=== PATIENT | female | born 1950 | race Two or more races ===

== ENCOUNTER 2020-03-27 16:15 | Emergency (ER) | payer MEDICAID ==
[~2020-03-27] VITALS: Ht 157.5 cm; Wt 73.9 kg
--- NOTE | 2020-03-27 16:50 | NUR ---
AAOX3, came to ER c/o diffuse abdominal pain, nausea, vomiting and diarrhea since this AM. Skin is warm and dry. Afebrile. Placed on the monitor. Awaiting MD for eval.
[2020-03-27] MEDS ORDERED: OMEP20CA15 PO (17:05)
[2020-03-27] MEDS ORDERED: LISI1TAB55 PO (17:05)
[2020-03-27] MEDS ORDERED: ATOR20TA PO (17:05)
--- NOTE | 2020-03-27 17:10 | NUR ---
IV LINE ESTABLISHED BLOOD DRAWN AND SENT TO LAB.
[2020-03-27 17:28] LABS: BASOPHILS # (AUTO) 0.1 /CMM (0.0-0.2); BASOPHILS % (AUTO) 0.5 % (0.0-2.0); EOSINOPHILS % (AUTO) 1.2 % (0.0-6.0); HEMATOCRIT 40 % (33-45); HEMOGLOBIN 13.5 g/dL (11.5-14.8); LYMPHOCYTES # (AUTO) 1.7 /CMM (0.8-4.8); LYMPHOCYTES % (AUTO) 14.6 % (20.0-44.0); MEAN CORPUSCULAR HGB CONC 34 g/dl (31.0-36.0); MEAN CORPUSCULAR VOLUME 91 fL (82-100); MONOCYTES # (AUTO) 0.9 /CMM (0.1-1.30); NEUTROPHILS # (AUTO) 8.7 /CMM (1.8-8.9); NEUTROPHILS % (AUTO) 75.7 % (43.0-81.0); PLATELET COUNT (AUTO) 313 /CMM (150-450); RED BLOOD CELL COUNT(AUTO) 4.45 MIL/uL (4.0-5.2); WHITE BLOOD COUNT (AUTO) 11.5 K/uL (4.3-11.0)
[2020-03-27] MEDS ORDERED: ONDANSETRON HCL/PF 4 MG/2 ML VIAL ONE (17:29)
[2020-03-27] MEDS ORDERED: PANTOPRAZOLE 40 MG VIAL ONE (17:29)
[2020-03-27] MEDS ORDERED: IV NS 0.9% 1,000 ML BAG IV ONE (17:30)
[2020-03-27] MEDS ORDERED: PANTOPRAZOLE 40 MG VIAL IV ONE (17:30)
[2020-03-27] MEDS ORDERED: FAMOTIDINE/PF INJ 20 MG/2 ML VIAL IV ONE ×2 (17:30)
[2020-03-27] MEDS ORDERED: ONDANSETRON HCL/PF 4 MG/2 ML VIAL IVP ONE (17:30)
--- NOTE | 2020-03-27 17:30 | NUR ---
URINE SPECIMEN COLLECTED AND SENT TO LAB.
[2020-03-27 17:31] LABS: CALCIUM, SERUM 9.4 mg/dL (8.5-10.1); CREATININE 0.7 mg/dL (0.6-1.3); POTASSIUM 3.7 mmol/L (3.5-5.1)
--- NOTE | 2020-03-27 17:34 | NUR ---
TECH AT BEDSIDE FOR US.
--- NOTE | 2020-03-27 17:42 | NUR ---
PT IS WHEELED TO CT SCAN VIA [facility].
[2020-03-27 17:46] LABS: ALBUMIN 4.3 g/dL (3.4-5.0); BILIRUBIN,DIRECT 0.1 mg/dL (0.0-0.2); BILIRUBIN,TOTAL 0.6 mg/dL (0.2-1.0); TOTAL PROTEIN, SERUM 8.5 g/dL (6.4-8.2)
[2020-03-27 18:02] LABS: BILIRUBIN,URINE Negative (NEGATIVE); BLOOD, URINE Trace-lysed Ery/uL (NEGATIVE); COLOR,URINE Yellow (YELLOW); KETONES,URINE Negative (NEGATIVE); LEUKOCYTE ESTERASE ,URINE Small (NEGATIVE); NITRITE, URINE Negative (NEGATIVE); PH,URINE 5.5 (5.0-8.0); PROTEIN,URINE Negative (NEGATIVE); UGLUCOSE Negative (NEGATIVE); UROBILINOGEN,URINE 0.2 EU/dL (0.2)
[2020-03-27 18:03] LABS: APPEARANCE,URINE SLIGHTLY CLOUDY (CLEAR)
[2020-03-27 18:26] LABS: BACTERIA,URINE Few /HPF (None Seen); MUCUS,URINE Few /LPF (None Seen); SQUAMOUS EPITHELIAL CELL,UR Few /HPF (None Seen)
--- NOTE | 2020-03-27 19:04 | NUR ---
IV removed. Catheter intact and site benign. Pressure and 4x4 applied to site. No bleeding noted. Patient discharged to home in stable condition. Written and verbal after care instructions given. Patient verbalizes understanding of instruction.
[2020-03-27 19:05] VITALS: BP 134/89
== END 2020-03-27 19:06 | disposition home or self-care (01) ==
LOC: ER 16:15
DX: N39.0 Urinary tract infection, site not specified (principal); R10.84 Generalized abdominal pain; R11.10 Vomiting, unspecified; R19.7 Diarrhea, unspecified; I10 Essential (primary) hypertension; K21.9 Gastro-esophageal reflux disease without esophagitis; E78.00 Pure hypercholesterolemia, unspecified; Z98.890 Other specified postprocedural states; Z79.899 Other long term (current) drug therapy
CPT/HCPCS: 36415; 74176; 76705; 80048; 80076; 81001; 83690; 85025; 85730; 96361; 96374; 96375; 99285; C9113; J2405; J3490; J7030; 81000-TC; 87086-TC; 87186-TC

== ENCOUNTER 2020-04-23 13:06 | Emergency (ER) | payer MEDICAID ==
[~2020-04-23] VITALS: Ht 157.5 cm; Wt 72.6 kg
[~2020-04-23 13:06] MED LIST: ATOR20TA PO; LISI1TAB55 PO; OMEP20CA15 PO
--- NOTE | 2020-04-23 13:30 | NUR ---
BIBS FROM HOME TO ER BED 5. AAOX4. NOT IN RESP DISTRESS, BREATHING EVEN AND UNLABORED. AMBULATORY. CAME IN FOR BACK PAIN, HEADACHE, SORETHROAT AND COUGH FOR THE PAST 5 DAYS. MD AT BEDSIDE FOR EVAL. ORDERD RECEIVED, NO9TED AND CARRIED OUT. URINE COLLECTED AND SENT TO LAB
[2020-04-23 14:02] LABS: BASOPHILS % (AUTO) 0.6 % (0.0-2.0); EOSINOPHILS % (AUTO) 0.8 % (0.0-6.0); HEMATOCRIT 37 % (33-45); HEMOGLOBIN 12.4 g/dL (11.5-14.8); LYMPHOCYTES # (AUTO) 2.3 /CMM (0.8-4.8); LYMPHOCYTES % (AUTO) 36.2 % (20.0-44.0); MEAN CORPUSCULAR HGB CONC 34 g/dl (31.0-36.0); MEAN CORPUSCULAR VOLUME 90 fL (82-100); MONOCYTES # (AUTO) 0.8 /CMM (0.1-1.30); MONOCYTES % (AUTO) 11.9 % (2.0-12.0); NEUTROPHILS # (AUTO) 3.2 /CMM (1.8-8.9); NEUTROPHILS % (AUTO) 50.5 % (43.0-81.0); PLATELET COUNT (AUTO) 263 /CMM (150-450); RED BLOOD CELL COUNT(AUTO) 4.11 MIL/uL (4.0-5.2); WHITE BLOOD COUNT (AUTO) 6.4 K/uL (4.3-11.0)
[2020-04-23 14:17] LABS: APPEARANCE,URINE CLEAR (CLEAR); BILIRUBIN,URINE NEGATIVE (NEGATIVE); BLOOD, URINE NEGATIVE Ery/uL (NEGATIVE); COLOR,URINE YELLOW (YELLOW); KETONES,URINE TRACE (NEGATIVE); LEUKOCYTE ESTERASE ,URINE TRACE (NEGATIVE); NITRITE, URINE NEGATIVE (NEGATIVE); PROTEIN,URINE 30 mg/dl (NEGATIVE); UGLUCOSE NEGATIVE (NEGATIVE); UROBILINOGEN,URINE 0.2 EU/dL (0.2)
[2020-04-23 14:22] LABS: CALCIUM, SERUM 8.6 mg/dL (8.5-10.1); POTASSIUM 3.5 mmol/L (3.5-5.1)
[2020-04-23 14:25] LABS: ALBUMIN 3.5 g/dL (3.4-5.0); BILIRUBIN,DIRECT 0.1 mg/dL (0.0-0.2); BILIRUBIN,TOTAL 0.2 mg/dL (0.2-1.0); TOTAL PROTEIN, SERUM 7.3 g/dL (6.4-8.2)
--- NOTE | 2020-04-23 14:36 | NUR ---
Patient discharged to home in stable condition. Written and verbal after care instructions given. Patient verbalizes understanding of instruction.
[2020-04-23 14:37] VITALS: BP 131/91
[2020-04-23 14:40] LABS: BACTERIA,URINE 1+ /HPF (None Seen); MUCUS,URINE Few /LPF (None Seen); RBC,URINE 0-2 /HPF (0-2)
== END 2020-04-23 14:37 | disposition home or self-care (01) ==
LOC: ER 13:08
DX: R10.9 Unspecified abdominal pain (principal); I10 Essential (primary) hypertension; K21.9 Gastro-esophageal reflux disease without esophagitis; E78.00 Pure hypercholesterolemia, unspecified; Z90.710 Acquired absence of both cervix and uterus; Z79.899 Other long term (current) drug therapy
CPT/HCPCS: 36415; 80048-TC; 80076-TC; 81000-TC; 83690-TC; 85025-TC

== ENCOUNTER 2021-03-17 18:44 | Emergency (ER) | payer MEDICAID ==
[~2021-03-17] VITALS: Ht 162.6 cm; Wt 70.8 kg
--- NOTE | 2021-03-17 18:50 | NUR ---
TO ER BED 7, C/O CHEST PAIN, ATTACHED TO MONITOR, CHANGED TO GOWN, SALINE LOCK ESTABLISHED, BLOOD DRAWN. AT BEDSIDE
[2021-03-17] MEDS ORDERED: CYCLOBENZAPRINE 10 MG TABLET PO ONE (19:00)
[2021-03-17] MEDS ORDERED: ACETAMINOPHEN ES 500 MG TABLET PO ONE (19:00)
[2021-03-17] MEDS ORDERED: CYCLOBENZAPRINE 10 MG TABLET ONE (19:05)
[2021-03-17] MEDS ORDERED: ACETAMINOPHEN ES 500 MG TABLET ONE (19:05)
[2021-03-17 19:38] LABS: BASOPHILS # (AUTO) 0.1 K/uL (0.0-0.2); BASOPHILS % (AUTO) 0.5 % (0.0-2.0); EOSINOPHILS % (AUTO) 0.4 % (0.0-6.0); HEMATOCRIT 37 % (33-45); HEMOGLOBIN 12.5 g/dL (11.5-14.8); LYMPHOCYTES # (AUTO) 2.6 K/uL (0.8-4.8); LYMPHOCYTES % (AUTO) 20.5 % (20.0-44.0); MEAN CORPUSCULAR HGB CONC 34 g/dl (31.0-36.0); MEAN CORPUSCULAR VOLUME 90 fL (82-100); MONOCYTES # (AUTO) 0.8 K/uL (0.1-1.30); MONOCYTES % (AUTO) 6.4 % (2.0-12.0); NEUTROPHILS % (AUTO) 72.2 % (43.0-81.0); PLATELET COUNT (AUTO) 299 K/uL (150-450); RED BLOOD CELL COUNT(AUTO) 4.09 MIL/uL (4.0-5.2); WHITE BLOOD COUNT (AUTO) 12.4 K/uL (4.3-11.0)
[2021-03-17 20:07] LABS: CALCIUM, SERUM 8.8 mg/dL (8.5-10.1); POTASSIUM 3.8 mmol/L (3.5-5.1)
[2021-03-17] MEDS ORDERED: CYCL5TAB PO (20:26)
[2021-03-17 21:15] VITALS: BP 135/76
--- NOTE | 2021-03-17 21:15 | NUR ---
Patient discharged to home in stable condition. Written and verbal after care instructions given. Patient verbalizes understanding of instruction and RX. Pt ambulated out of ED. VSS.
--- NOTE | 2021-03-17 21:15 | NUR ---
IV removed. Catheter intact and site benign. Pressure and 4x4 applied to site. No bleeding noted.
== END 2021-03-17 21:15 | disposition home or self-care (01) ==
LOC: ER 18:46
DX: S29.011A Strain of muscle and tendon of front wall of thorax, initial encounter (principal); R07.89 Other chest pain; I10 Essential (primary) hypertension; K21.9 Gastro-esophageal reflux disease without esophagitis; E78.00 Pure hypercholesterolemia, unspecified; Z98.890 Other specified postprocedural states; Z79.899 Other long term (current) drug therapy; X50.0XXA Overexertion from strenuous movement or load, initial encounter; Y93.89 Activity, other specified; Y92.89 Other specified places as the place of occurrence of the external cause; Y99.8 Other external cause status
CPT/HCPCS: 36415; 71045-TC; 80048-TC; 84484-TC; 85025-TC

== ENCOUNTER 2021-04-24 10:49 | Emergency (ER) | payer MEDICAID ==
[~2021-04-24] VITALS: Ht 160 cm; Wt 73.9 kg
[~2021-04-24 10:49] MED LIST changes: +CYCL5TAB PO
--- NOTE | 2021-04-24 11:10 | NUR ---
The patient bibs for c/o cough and sorethroat x 3 days. The patient rates sorethroat 02/16. Denies SOB. Respiration regular and unlabored. Denies chill or fevers. Will continue to monitor the patient.
[2021-04-24] MEDS ORDERED: BENZ-13 PO (12:58)
[2021-04-24] MEDS ORDERED: GUAI1TBM19 PO (12:58)
[2021-04-24] MEDS: DEXAMETHASONE SOLN 5 MG/5 ML UDC PO ONE (13:20)
[2021-04-24] MEDS: KETOROLAC TROMETHAMINE INJ 30 MG/ML VIAL IM ONE (13:20)
[2021-04-24] MEDS ORDERED: KETOROLAC TROMETHAMINE INJ 30 MG/ML VIAL ONE (13:31)
[2021-04-24] MEDS ORDERED: DEXAMETHASONE 4 MG TABLET ONE (13:31)
[2021-04-24 13:45] VITALS: BP 124/68
--- NOTE | 2021-04-24 13:45 | NUR ---
Patient discharged to home in stable condition. Written and verbal after care instructions given. Patient verbalizes understanding of instruction.
== END 2021-04-24 13:45 | disposition home or self-care (01) ==
LOC: ER 10:52
DX: J02.9 Acute pharyngitis, unspecified (principal); R05 Cough; I10 Essential (primary) hypertension; K21.9 Gastro-esophageal reflux disease without esophagitis; E78.00 Pure hypercholesterolemia, unspecified; Z98.890 Other specified postprocedural states; Z79.899 Other long term (current) drug therapy
CPT/HCPCS: 71045; 96372; 99283; J1885; J8540

== ENCOUNTER 2022-05-26 12:42 | Emergency (ER) | payer MEDICAID, OTHER ==
[~2022-05-26] VITALS: Ht 167.6 cm; Wt 81.6 kg
[~2022-05-26 12:42] MED LIST changes: +BENZ-13 PO; +GUAI1TBM19 PO
--- NOTE | 2022-05-26 12:57 | NUR ---
BIBS W/ FAMILY W/ C/O WORSENING COUGH AND CONGESTION; DX WITH BRONCHITIS 4 DAYS AGO. TO ER BED 8.
--- NOTE | 2022-05-26 13:15 | NUR ---
PT ATTACHED TO MONITOR. VS TAKEN
--- NOTE | 2022-05-26 13:35 | NUR ---
DR SOLO AT BEDSIDE FOR EVAL
[2022-05-26] MEDS ORDERED: ALBUTEROL FS 2.5 MG/3 ML VIAL.NEB NEB ONE (14:00)
[2022-05-26] MEDS ORDERED: IPRATROPIUM NEB FS 0.5 MG/2.5 ML AMPUL.NEB NEB ONE (14:00)
--- NOTE | 2022-05-26 14:00 | NUR ---
CALLED RT FOR BREATHING TX
--- NOTE | 2022-05-26 14:06 | NUR ---
PT AMBULATORY W/ STEADY GAIT, ABLE TO GO TO THE BATHROOM
[2022-05-26] MEDS ORDERED: ALBUTEROL FS 2.5 MG/3 ML VIAL.NEB ONE (14:07)
[2022-05-26] MEDS ORDERED: IPRATROPIUM NEB FS 0.5 MG/2.5 ML AMPUL.NEB ONE (14:07)
--- NOTE | 2022-05-26 14:08 | NUR ---
RT AT BEDSIDE
--- NOTE | 2022-05-26 14:16 | NUR ---
TECH AT BEDSIDE FOR EKG
[2022-05-26] MEDS ORDERED: BENZ-13 PO (15:09)
--- NOTE | 2022-05-26 15:16 | NUR ---
Patient discharged to home in stable condition. Written and verbal after care instructions given. Patient verbalizes understanding of instruction.
[2022-05-26 15:17] VITALS: BP 137/77
== END 2022-05-26 15:17 | disposition home or self-care (01) ==
LOC: ER 12:46
DX: J40 Bronchitis, not specified as acute or chronic (principal); I10 Essential (primary) hypertension; E78.5 Hyperlipidemia, unspecified; K21.9 Gastro-esophageal reflux disease without esophagitis; Z90.710 Acquired absence of both cervix and uterus; Z79.899 Other long term (current) drug therapy
CPT/HCPCS: 94799-TC

== ENCOUNTER 2022-11-25 00:25 | Emergency (ER) | payer OTHER ==
[~2022-11-25] VITALS: Ht 157.5 cm; Wt 77.1 kg
--- NOTE | 2022-11-25 00:59 | NUR ---
BIBSELF FROM HOME FOR HTN +H/A, +NAUSEA & HEARTBURN. PT AAOX4. PLACED COMFORTABLY IN BED, VITALS CHECKED.
--- NOTE | 2022-11-25 02:00 | NUR ---
Patient discharged to home in stable condition. Written and verbal after care instructions given. Patient verbalizes understanding of instruction.
[2022-11-25 02:28] VITALS: BP 139/78
== END 2022-11-25 02:00 | disposition home or self-care (01) ==
LOC: ER 00:30
DX: I10 Essential (primary) hypertension (principal); R51.9 Headache, unspecified; R11.0 Nausea; E78.5 Hyperlipidemia, unspecified; K21.9 Gastro-esophageal reflux disease without esophagitis; Z90.49 Acquired absence of other specified parts of digestive tract; Z79.899 Other long term (current) drug therapy

== ENCOUNTER 2022-12-28 12:01 | Inpatient (IN) | payer OTHER ==
[~2022-12-28] VITALS: Ht 154.9 cm; Wt 69.9 kg
--- NOTE | 2022-12-28 12:49 | NUR ---
PT IN BED 2 A/O X4 BREATHING IS EVEN AND UNLABORED NO SOB NOTED. C/O STRONG COUGH THAT CAUSES PAIN X1 WEEK. RECENTLY WENT TO [facility] GOT Rx OF AMOXICILIN AND TYLONOL. IS EXPERINCING DIARHEA. IN BED ACCOMAPPNIED BY FAMILY BED LOCKED IN LOWEST POSTION.
[2022-12-28] MEDS ORDERED: ONDANSETRON HCL/PF 4 MG/2 ML VIAL ONE (13:11)
[2022-12-28] MEDS ORDERED: IV NS 0.9% 1,000 ML BAG IV ONE (13:30)
[2022-12-28] MEDS ORDERED: ONDANSETRON HCL/PF 4 MG/2 ML VIAL IVP ONE (13:30)
--- NOTE | 2022-12-28 13:36 | NUR ---
labs drawn and sent to lab.
[2022-12-28 13:51] LABS: HEMATOCRIT 40 % (33-45); HEMOGLOBIN 13.2 g/dL (11.5-14.8)
[2022-12-28 13:52] LABS: BASOPHILS # (AUTO) 0.1 K/uL (0.0-0.2); BASOPHILS % (AUTO) 0.8 % (0.0-2.0); EOSINOPHILS % (AUTO) 0.3 % (0.0-6.0); LYMPHOCYTES # (AUTO) 1.5 K/uL (0.8-4.8); LYMPHOCYTES % (AUTO) 18.3 % (20.0-44.0); MEAN CORPUSCULAR HGB CONC 33 g/dl (31.0-36.0); MEAN CORPUSCULAR VOLUME 92 fL (82-100); MONOCYTES # (AUTO) 1.1 K/uL (0.1-1.30); MONOCYTES % (AUTO) 14.2 % (2.0-12.0); NEUTROPHILS # (AUTO) 5.3 K/uL (1.8-8.9); NEUTROPHILS % (AUTO) 66.4 % (43.0-81.0); PLATELET COUNT (AUTO) 273 K/uL (150-450)
--- NOTE | 2022-12-28 13:55 | NUR ---
chest x ray taken.
[2022-12-28 14:11] LABS: ALANINE AMINOTRANSFERASE 36 U/L (12-78); ALKALINE PHOSPHATASE 88 U/L (46-116); ASPARTATE AMINOTRANSFERASE 43 U/L (15-37); BILIRUBIN,TOTAL 0.4 mg/dL (0.2-1.0); CALCIUM, SERUM 9.8 mg/dL (8.5-10.1); CARBON DIOXIDE 28 mmol/L (21-32); CHLORIDE 101 mmol/L (98-107); CREATININE 0.9 mg/dL (0.6-1.3); GLUCOSE 110 mg/dL (74-106); LIPASE 96 U/L (73-393); POTASSIUM 4.5 mmol/L (3.5-5.1); SODIUM SERUM 139 mmol/L (136-145); TOTAL PROTEIN, SERUM 8.4 g/dL (6.4-8.2); UREA NITROGEN, BLOOD 19 mg/dL (7-18)
[2022-12-28] MEDS ORDERED: ASPIRIN 81 MG TAB.CHEW ONE (15:00)
[2022-12-28] MEDS ORDERED: ASPIRIN 81 MG TAB.CHEW PO ONE (15:00)
--- NOTE | 2022-12-28 15:07 | NUR ---
MOVE SHEET SUBMITTED.
[2022-12-28] MEDS ORDERED: AMOX1TAB15 PO (15:21)
[2022-12-28] MEDS ORDERED: LISI40TA13 PO (15:21)
[2022-12-28] MEDS ORDERED: HYDR25TA4 PO (15:21)
[2022-12-28] MEDS ORDERED: ACET-73 PO (15:21)
--- NOTE | 2022-12-28 15:56 | NUR ---
Alexi hoang in [facility] - 12/28/22 at 1556 by REJI troponin 104
[2022-12-28] MEDS ORDERED: BENZONATATE 100 MG CAPSULE PO ONE ×2 (16:19→16:30)
[2022-12-28 18:06] LABS: BILIRUBIN,URINE NEGATIVE (NEGATIVE); COLOR,URINE YELLOW (YELLOW); LEUKOCYTE ESTERASE ,URINE 1+ (NEGATIVE); NITRITE, URINE NEGATIVE (NEGATIVE); PH,URINE 6.5 (5.0-8.0); PROTEIN,URINE NEGATIVE (NEGATIVE); UGLUCOSE NEGATIVE (NEGATIVE); UROBILINOGEN,URINE 0.2 EU/dL (0.2)
[2022-12-28 19:23] LABS: RBC,URINE NONE SEEN /HPF (0-2)
[2022-12-28 19:24] LABS: BACTERIA,URINE Few /HPF (None Seen); SQUAMOUS EPITHELIAL CELL,UR Few /HPF (None Seen)
--- NOTE | 2022-12-28 19:28 | NUR ---
paged [facility].
[2022-12-28] MEDS ORDERED: MORPHINE SULFATE INJ 2 MG/ML DISP.SYRIN IV PRN (20:00)
[2022-12-28] MEDS ORDERED: ONDANSETRON HCL/PF 4 MG/2 ML VIAL IVP PRN (20:00)
[2022-12-28] MEDS ORDERED: ACETAMINOPHEN 325 MG TABLET PO PRN (20:00)
--- NOTE | 2022-12-28 20:22 | NUR ---
report given to 3W charge nurse
--- NOTE | 2022-12-28 20:30 | NUR ---
PT TRANSFERRING TO 304-1 VIA ACLS PROTOCOL. VSS. ALL BELONGINGS WITH PT.
--- NOTE | 2022-12-28 20:35 | NUR ---
FEDERAL LAW CLERKSPACE SCIENCES DIRECTOR NOTE ADMITTED THIS PATIENT FROM ER VIA [facility] WITH ER STAFF. DX OF NSTEMI. PATIENT IS AWAKE, ALERT AND ORIENTED X 4. TELUGU SPEAKER. ON ROOM AIR; TOLERATING WELL. VITAL SIGNS FOLLOWS: Temp 98.3, AZ 85, RR 20, O2 SAT 96%, BP 144/58 MM HG. ABLE TO MAKE NEEDS KNOWN. NOT IN ANY FORM OF RESPIRATORY OR CARDIAC DISTRESS. DENIES ANY PAIN OR DISCOMFORT. ATTACHED TO EXTERNAL CARDIAC MONITORING SR HR-84 BPM. WITH IV ACCESS ON RIGHT WRIST 20g; PATENT, INTACT AND SALINE LOCKED. BODY AND SKIN ASSESSMENT DONE; SKIN IS INTACT. ORIENTED TO STAFF, ROOM AND UNIT. INVENTORY OF PERSONAL BELONGINGS DONE. FALL AND SAFETY PRECAUTIONS INITIATED: CALL LIGHT AND TABLE WITHIN REACH, SIDE RAILS UP X 2, BED IN LOWEST LOCKED POSITION. WILL CONTINUE TO MONITOR THROUGHOUT SHIFT.
[2022-12-28 21:00] VITALS: BP 120/78
[2022-12-28] MEDS: ENOXAPARIN SODIUM 40 MG/0.4 ML DISP.SYRIN SQ SCH (22:38)
[2022-12-28] MEDS: ATORVASTATIN 40 MG TABLET PO SCH (22:39)
[2022-12-29 05:17] VITALS: BP_SYST 155
[2022-12-29 05:18] VITALS: BP 125/55
[2022-12-29 05:55] LABS: BASOPHILS % (AUTO) 1.1 % (0.0-2.0); EOSINOPHILS % (AUTO) 0.5 % (0.0-6.0); HEMATOCRIT 37 % (33-45); HEMOGLOBIN 12.3 g/dL (11.5-14.8); LYMPHOCYTES # (AUTO) 1.8 K/uL (0.8-4.8); LYMPHOCYTES % (AUTO) 38.9 % (20.0-44.0); MEAN CORPUSCULAR HGB CONC 34 g/dl (31.0-36.0); MEAN CORPUSCULAR VOLUME 91 fL (82-100); MONOCYTES # (AUTO) 0.9 K/uL (0.1-1.30); MONOCYTES % (AUTO) 19.2 % (2.0-12.0); NEUTROPHILS # (AUTO) 1.8 K/uL (1.8-8.9); NEUTROPHILS % (AUTO) 40.3 % (43.0-81.0); PLATELET COUNT (AUTO) 250 K/uL (150-450); RED BLOOD CELL COUNT(AUTO) 4.03 MIL/uL (4.0-5.2); WHITE BLOOD COUNT (AUTO) 4.6 K/uL (4.3-11.0)
[2022-12-29 06:22] LABS: ALANINE AMINOTRANSFERASE 31 U/L (12-78); ALBUMIN 3.3 g/dL (3.4-5.0); ALKALINE PHOSPHATASE 71 U/L (46-116); ASPARTATE AMINOTRANSFERASE 33 U/L (15-37); BILIRUBIN,TOTAL 0.3 mg/dL (0.2-1.0); CALCIUM, SERUM 9.2 mg/dL (8.5-10.1); CARBON DIOXIDE 27 mmol/L (21-32); CHLORIDE 105 mmol/L (98-107); CREATININE 0.9 mg/dL (0.6-1.3); GLUCOSE 109 mg/dL (74-106); MAGNESIUM 1.8 mg/dL (1.8-2.4); PHOSPHORUS 4.3 mg/dL (2.5-4.9); POTASSIUM 3.6 mmol/L (3.5-5.1); SODIUM SERUM 141 mmol/L (136-145); UREA NITROGEN, BLOOD 14 mg/dL (7-18)
--- NOTE | 2022-12-29 07:05 | NUR ---
SIGNALER CLOSING NOTE PATIENT IN BED; AWAKE, A/O X 4. STABLE ON ROOM AIR. IN NO ACUTE DISTRESS. NO C/O ANY PAIN OR DISCOMFORT. ON EXTERNAL CARDIAC MONITORING SR HR-84 BPM. WITH IV ACCESS ON RIGHT WRIST 20g; PATENT, INTACT AND SALINE LOCKED. ALL NEEDS ATTENDED. ALL DUE MEDS GIVEN ORDERED. FALL AND SAFETY PRECAUTIONS MAINTAINED: CALL LIGHT AND TABLE WITHIN REACH, SIDE RAILS UP X 2, BED IN LOWEST LOCKED POSITION. ENDORSED TO MORNING SHIFT FOR BROOKS.
[2022-12-29 07:06] LABS: BAND % (MANUAL) 2 % (0.0-5.0); LYMPHOCYTES % (MANUAL) 39 % (16-48); MONOCYTES % (MANUAL) 17 % (0-11.0); NEUTROPHILS % (MANUAL) 42 (42-76)
--- NOTE | 2022-12-29 07:15 | NUR ---
STAMP CLASSIFIER OPENING NOTES RECEIVED PATIENT AWAKE IN BED RESTING, APPEARS TO BE COMFORTABLE, A/OX4, DENIES PAIN AT THIS TIME, ON RA, BREATHING EVEN AND UNLABORED, NO DISTRESS OR SOB NOTED, IV ACCESS R WRIST 22#G, ON SALINE LOCK, INTACT, PATENT AND FLUSHING WELL, PATIENT WITH EXTERNAL WIRE TRANSFER CLERK WITH CURRENT READING OF SR AND CURRENT HR OF 76, NO CARDIAC DISTRESS NOTED, PATIENT IS CONTINENT, ON BRP, FALL AND SAFETY MEASURES IN PLACE, BED IN LOW AND LOCK POSITION, CALL LIGHT AND TRAY TABLE WITHIN EASY REACH, SIDE RAILS UP X2, WILL CONTINUE TO MONITOR PATIENT ACCORDINGLY.
[2022-12-29 08:00] VITALS: BP 136/60
[2022-12-29] MEDS: SULFAMETH/TRIMETH 800/160 MG 1 UDTAB TABLET PO SCH ×2 (08:17→21:35)
[2022-12-29] MEDS: LISINOPRIL (20MG) 20 MG TABLET PO SCH (08:20)
--- NOTE | 2022-12-29 10:54 | NUR ---
RN NOTE RECEIVED A CALL FROM LAB GIORGI OLIVEIRA AND REPORTED THAT PATIENTS HAS CRITICAL HIGH TROPONIN IS 134. DR. GARCIA IS IN UNIT AND NOTIFIED HIM OF THE RESULT.
[2022-12-29] MEDS: ASPIRIN 81 MG TAB.CHEW PO SCH (11:01)
[2022-12-29 12:00] VITALS: BP 148/60
[2022-12-29] MEDS ORDERED: MAGNESIUM HYDROXIDE 30 ML UDC PO PRN (14:30)
[2022-12-29] MEDS: GUAIFENESIN/CODEINE 10 ML UDC PO PRN (14:36)
--- NOTE | 2022-12-29 14:37 | NUR ---
RN NOTES PATIENT WAS NOTED WITH COUGH AND CONGESTION, NOTIFIED ANESTHESIOLOGIST/PHYSICIAN RUPALI CENTENO AND ORDERED TO GIVE ROBITUSSIN 10MG SYRUP Q 6 HRS PRN. MED GIVEN AT 1436.
[2022-12-29 16:00] VITALS: BP 98/44
--- NOTE | 2022-12-29 18:38 | NUR ---
ELECTRIC CONTAINER TESTER CLOSING NOTES PATIENT AWAKE IN BED RESTING, APPEARS TO BE COMFORTABLE, A/OX4, DENIES PAIN AT THIS TIME, ON RA, BREATHING EVEN AND UNLABORED, NO DISTRESS OR SOB NOTED, IV ACCESS R WRIST 22#G, ON SALINE LOCK, INTACT, PATENT AND FLUSHING WELL, PATIENT WITH EXTERNAL PRODUCTION LABORER WITH CURRENT READING OF SR AND CURRENT HR OF 74, NO CARDIAC DISTRESS NOTED, PATIENT IS CONTINENT, ON BRP, FALL AND SAFETY MEASURES IN PLACE, BED IN LOW AND LOCK POSITION, CALL LIGHT AND TRAY TABLE WITHIN EASY REACH, SIDE RAILS UP X2, WILL CONTINUE TO MONITOR PATIENT
--- NOTE | 2022-12-29 19:20 | NUR ---
TELERN OOB ON A CHAIR, RESTING QUIETLY. NO COMPLAINTS MADE. PAINFREE. SAFETY PRECAUTIONS EMPHASIZED. PLAN OF CARE AND MEDICATION REGIMEN DISCUSSED WITH PATIENT WITH SON TRANSLATING. PATIENT ARABIC SPEAKING ONLY. ABLE TO UNDERSTAND SIMPLE SOU[place]. ON RA.
[2022-12-29 20:00] VITALS: BP 124/57
[2022-12-29] MEDS: ATORVASTATIN 40 MG TABLET PO SCH (21:35)
[2022-12-29] MEDS: ENOXAPARIN SODIUM 40 MG/0.4 ML DISP.SYRIN SQ SCH (21:36)
--- NOTE | 2022-12-29 21:48 | NUR ---
TELERN DUE MEDS GIVEN, REMAINS SR ON THE MONITOR. PAINFREE.
[2022-12-30] VITALS: BP 123/54
[2022-12-30] MEDS: GUAIFENESIN/CODEINE 10 ML UDC PO PRN (03:13)
--- NOTE | 2022-12-30 03:15 | NUR ---
RN NOTE PT NOTED WITH PERSISTENT COUGH. ADMINISTERED ROBITUSSIN 10 ML FOR COUGH ORDERED. MADE COMFORTABLE IN BED. ALL NEEDS MET AT THIS TIME.
[2022-12-30 04:00] VITALS: BP 118/52
[2022-12-30 06:54] LABS: BASOPHILS % (AUTO) 0.7 % (0.0-2.0); EOSINOPHILS % (AUTO) 1.3 % (0.0-6.0); HEMATOCRIT 36 % (33-45); HEMOGLOBIN 12.2 g/dL (11.5-14.8); LYMPHOCYTES # (AUTO) 2.4 K/uL (0.8-4.8); LYMPHOCYTES % (AUTO) 49.2 % (20.0-44.0); MEAN CORPUSCULAR HGB CONC 34 g/dl (31.0-36.0); MEAN CORPUSCULAR VOLUME 89 fL (82-100); MONOCYTES # (AUTO) 0.7 K/uL (0.1-1.30); MONOCYTES % (AUTO) 14.9 % (2.0-12.0); NEUTROPHILS # (AUTO) 1.7 K/uL (1.8-8.9); NEUTROPHILS % (AUTO) 33.9 % (43.0-81.0); PLATELET COUNT (AUTO) 257 K/uL (150-450); RED BLOOD CELL COUNT(AUTO) 4.07 MIL/uL (4.0-5.2); WHITE BLOOD COUNT (AUTO) 4.9 K/uL (4.3-11.0)
--- NOTE | 2022-12-30 06:54 | NUR ---
TELERN REMAINS UNCHANGED SR ON THE MONITOR. CONTINUED MONITORING. LABS PENDING
[2022-12-30 07:10] LABS: ALBUMIN 3.3 g/dL (3.4-5.0); BILIRUBIN,TOTAL 0.3 mg/dL (0.2-1.0); CALCIUM, SERUM 9.1 mg/dL (8.5-10.1); PHOSPHORUS 4.4 mg/dL (2.5-4.9)
--- NOTE | 2022-12-30 07:15 | NUR ---
[employer] OPENING NOTES RECEIVED PATIENT AWAKE IN BED RESTING, APPEARS TO BE COMFORTABLE, A/OX4, DENIES PAIN AT THIS TIME, ON RA, BREATHING EVEN AND UNLABORED, NO DISTRESS OR SOB NOTED, HAS PERIODS OF COUGHING, PATIENT REPORTED COUGH IS GETTING BETTER, IV ACCESS R WRIST 22#G, ON SALINE LOCK, INTACT, PATENT AND FLUSHING WELL, PATIENT WITH EXTERNAL KITCHEN LEAD WITH CURRENT READING OF SR AND CURRENT HR OF 60, NO CARDIAC DISTRESS NOTED, PATIENT IS CONTINENT, ON BRP, FALL AND SAFETY MEASURES IN PLACE, BED IN LOW AND LOCK POSITION, CALL LIGHT AND TRAY TABLE WITHIN EASY REACH, SIDE RAILS UP X2, WILL CONTINUE TO MONITOR PATIENT
[2022-12-30 08:00] VITALS: BP 117/73
[2022-12-30] MEDS: SULFAMETH/TRIMETH 800/160 MG 1 UDTAB TABLET PO SCH (08:11)
[2022-12-30] MEDS: ASPIRIN 81 MG TAB.CHEW PO SCH (08:11)
[2022-12-30] MEDS: LISINOPRIL (20MG) 20 MG TABLET PO SCH (08:12)
--- NOTE | 2022-12-30 10:02 | NUR ---
RN NOTES DR GARCIA ORDERED [facility] FOR PT. OBTAINED CONSENT FROM PT WITH THE HELP OF PT'S SON SHARONA BEAM SAW OPERATOR PT SPEAKS TURKMEN ONLY. NEW IV ACCESS INSERTED TO LAC G#20.
[2022-12-30] MEDS ORDERED: GUAI10SY3 PO (10:08)
[2022-12-30] MEDS: METOPROLOL TARTRATE INJ 5 MG/5 ML AMPUL IVP PRN ×2 (10:40→10:45)
[2022-12-30] MEDS ORDERED: IV NS 0.9% 250 ML IV ONE (10:41)
[2022-12-30] MEDS ORDERED: NITROGLYCERIN 0.4 MG/TAB BOTTLE ONE (10:41)
[2022-12-30] MEDS ORDERED: IOHEXOL-350 100 ML VIAL IV ONE (10:41)
[2022-12-30] MEDS ORDERED: CT SWABBABLE VALVE TRANS SET 1 EA INFUS.SET MC ONE (10:41)
[2022-12-30] MEDS ORDERED: METOPROLOL TARTRATE INJ 5 MG/5 ML AMPUL ONE (10:41)
[2022-12-30] MEDS ORDERED: NITROGLYCERIN 0.4 MG/TAB BOTTLE SL ONE (11:00)
[2022-12-30 12:00] VITALS: BP 97/40
[2022-12-30] MEDS ORDERED: SULF1TAB48 PO (15:13)
[2022-12-30 16:00] VITALS: BP 102/62
--- NOTE | 2022-12-30 16:16 | NUR ---
RN NOTE PATIENT C/O HAVING N/V AND ASK FOR A MEDICATION, ADMINISTERED ZOFRAN ORDERED.
--- NOTE | 2022-12-30 18:40 | NUR ---
RN DISCHARGED NOTES PATIENT DISCHARGED HOME IN STABLE MEDICAL CONDITION. PATIENT IS A/OX4, ABLE TO MAKE NEEDS KNOWN. V/S TAKEN, STABLE AND RECORDED. IV ACCESSES ON RIGHT WRIST G#22 AND LAC G#20 BOTH REMOVED, DRY PRESSURE DRESSING APPLIED AT SITES, NO ACTIVE BLEEDING NOTED. EXTERNAL WAREHOUSE DELIVERY MANAGER REMOVED AND RETURNED TO TRAVEL WRITER GEENA. ALL BELONGINGS CHECKED AND BELONGINGS LIST SIGNED BY PT. NO SKIN ISSUES NOTED. HEALTH TEACHINGS/DISCHARGE INSTRUCTIONS GIVEN TO PT AND SON MARLIN, BOTH VERBALIZED UNDERSTANDING. ALSO INSTRUCTED PATIENT AND SON TO CALL 911 OR GO TO THE NEAREST ER FOR ANY EMERGENCY. PATIENT LEFT UNIT VIA WHEELCHAIR ACCOMPANIED BY MAGAN Treviño CHARGE NURSE AND MD AWARE OF DISCHARGE.
== END 2022-12-30 18:15 | disposition home or self-care (01) | DRG 113 ==
LOC: ER 12:04 → TELE 20:13
PROVIDERS: ADMIT Nurse Practitioner Acute Care; ATTEND Nurse Practitioner Acute Care
DX: J06.9 Acute upper respiratory infection, unspecified (principal); I21.A1 Myocardial infarction type 2; E88.09 Other disorders of plasma-protein metabolism, not elsewhere classified; N39.0 Urinary tract infection, site not specified; E78.5 Hyperlipidemia, unspecified; I10 Essential (primary) hypertension; B96.89 Other specified bacterial agents as the cause of diseases classified elsewhere; R79.89 Other specified abnormal findings of blood chemistry; E78.00 Pure hypercholesterolemia, unspecified; E86.0 Dehydration; Z90.710 Acquired absence of both cervix and uterus; K57.10 Diverticulosis of small intestine without perforation or abscess without bleeding; K21.9 Gastro-esophageal reflux disease without esophagitis; Z79.899 Other long term (current) drug therapy; Z20.822 Contact with and (suspected) exposure to COVID-19
CPT/HCPCS: 36415; 71045-TC; 75574; 80048-TC; 80053-TC; 80061-TC; 80076-TC; 81001; 83690-TC; 83735-TC; 84100-TC; 84439-TC; 84484-TC; 85025-TC; 87081-TC; 87086-TC; 93307-TC; 97116-TC; 97530-TC; C9803; G0378; J1650; J2405; J3490; J7030; J7050; Q9967

== ENCOUNTER 2023-05-11 10:19 | Emergency (ER) | payer OTHER ==
[~2023-05-11] VITALS: Ht 154.9 cm; Wt 70.8 kg
[~2023-05-11 10:19] MED LIST changes: +ACET-73 PO; -BENZ-13 PO; -CYCL5TAB PO; +GUAI10SY3 PO; -GUAI1TBM19 PO; +HYDR25TA4 PO; -LISI1TAB55 PO; +LISI40TA13 PO; +SULF1TAB48 PO
[2023-05-11] MEDS ORDERED: ONDANSETRON HCL/PF 4 MG/2 ML VIAL ONE (10:55)
[2023-05-11] MEDS ORDERED: ONDANSETRON HCL/PF 4 MG/2 ML VIAL IVP ONE (11:00)
[2023-05-11] MEDS ORDERED: IV NS 0.9% 1,000 ML BAG IV ONE (11:00)
[2023-05-11 11:12] LABS: CALCIUM, SERUM 9.7 mg/dL (8.5-10.1); CARBON DIOXIDE 26 mmol/L (21-32); CHLORIDE 101 mmol/L (98-107); GLUCOSE 113 mg/dL (74-106); POTASSIUM 4.4 mmol/L (3.5-5.1); SODIUM SERUM 138 mmol/L (136-145); UREA NITROGEN, BLOOD 27 mg/dL (7-18)
[2023-05-11 11:18] LABS: BASOPHILS % (AUTO) 0.1 % (0.0-2.0); EOSINOPHILS % (AUTO) 0.1 % (0.0-6.0); HEMATOCRIT 39 % (33-45); HEMOGLOBIN 13.2 g/dL (11.5-14.8); LYMPHOCYTES # (AUTO) 0.9 K/uL (0.8-4.8); MEAN CORPUSCULAR HEMOGLOBIN 30 PG (26.0-33.0); MEAN CORPUSCULAR HGB CONC 34 g/dl (31.0-36.0); MEAN CORPUSCULAR VOLUME 89 fL (82-100); MONOCYTES # (AUTO) 1.3 K/uL (0.1-1.30); NEUTROPHILS # (AUTO) 15.6 K/uL (1.8-8.9); NEUTROPHILS % (AUTO) 87.8 % (43.0-81.0); PLATELET COUNT (AUTO) 331 K/uL (150-450); RED BLOOD CELL COUNT(AUTO) 4.39 MIL/uL (4.0-5.2); RED CELL DISTRIBUTION WIDTH 14.1 % (11.5-15.0); WHITE BLOOD COUNT (AUTO) 17.8 K/uL (4.3-11.0)
[2023-05-11 11:19] LABS: ALANINE AMINOTRANSFERASE 29 U/L (12-78); ALBUMIN 4.1 g/dL (3.4-5.0); ALKALINE PHOSPHATASE 90 U/L (46-116); ASPARTATE AMINOTRANSFERASE 23 U/L (15-37); BILIRUBIN,DIRECT 0.1 mg/dL (0.0-0.2); BILIRUBIN,TOTAL 0.8 mg/dL (0.2-1.0); LIPASE 108 U/L (73-393); TOTAL PROTEIN, SERUM 8.6 g/dL (6.4-8.2)
[2023-05-11] MEDS ORDERED: ONDA4TAB5 PO (12:27)
[2023-05-11] MEDS ORDERED: LOPE1LIQ56 PO (12:27)
[2023-05-11] MEDS ORDERED: CIPR-262 PO (12:27)
[2023-05-11 12:40] VITALS: BP 113/70; TEMP 98.4; O2SAT 97
== END 2023-05-11 12:40 | disposition home or self-care (01) ==
LOC: ER 10:24
DX: K52.9 Noninfective gastroenteritis and colitis, unspecified (principal); I10 Essential (primary) hypertension; E78.00 Pure hypercholesterolemia, unspecified; K21.9 Gastro-esophageal reflux disease without esophagitis; Z90.710 Acquired absence of both cervix and uterus
CPT/HCPCS: 99285; 96374; 76700; 96361; 85025; 80048; 83690; 80076; 36415; J2405; J7030

== ENCOUNTER 2023-06-20 11:48 | Emergency (ER) | payer OTHER ==
[~2023-06-20] VITALS: Ht 157.5 cm; Wt 70.3 kg
[~2023-06-20 11:48] MED LIST changes: +CIPR-262 PO; +LOPE1LIQ56 PO; +ONDA4TAB5 PO
[2023-06-20] MEDS ORDERED: ONDANSETRON HCL/PF 4 MG/2 ML VIAL IVP ONE (14:30)
[2023-06-20] MEDS ORDERED: MORPHINE SULFATE INJ 2 MG/ML DISP.SYRIN IV ONE (14:30)
[2023-06-20] MEDS ORDERED: IV NS 0.9% 1,000 ML BAG IV ONE (14:30)
[2023-06-20] MEDS ORDERED: hydrALAZINE HCL IV 20 MG VIAL IV ONE ×2 (15:00→16:30)
[2023-06-20 15:07] LABS: BASOPHILS # (AUTO) 0.1 K/uL (0.0-0.2); BASOPHILS % (AUTO) 0.6 % (0.0-2.0); EOSINOPHILS # (AUTO) 0.2 K/uL (0.0-0.7); EOSINOPHILS % (AUTO) 2.1 % (0.0-6.0); HEMATOCRIT 36 % (33-45); HEMOGLOBIN 12.1 g/dL (11.5-14.8); LYMPHOCYTES % (AUTO) 33.3 % (20.0-44.0); MEAN CORPUSCULAR HEMOGLOBIN 30 PG (26.0-33.0); MEAN CORPUSCULAR HGB CONC 34 g/dl (31.0-36.0); MEAN CORPUSCULAR VOLUME 88 fL (82-100); MONOCYTES # (AUTO) 0.7 K/uL (0.1-1.30); PLATELET COUNT (AUTO) 333 K/uL (150-450); RED BLOOD CELL COUNT(AUTO) 4.06 MIL/uL (4.0-5.2); RED CELL DISTRIBUTION WIDTH 14.2 % (11.5-15.0)
[2023-06-20 15:13] LABS: CARBON DIOXIDE 31 mmol/L (21-32); CHLORIDE 102 mmol/L (98-107); CREATININE 0.9 mg/dL (0.6-1.3); GLUCOSE 97 mg/dL (74-106); POTASSIUM 3.8 mmol/L (3.5-5.1); SODIUM SERUM 139 mmol/L (136-145); UREA NITROGEN, BLOOD 17 mg/dL (7-18)
[2023-06-20 15:20] LABS: ALANINE AMINOTRANSFERASE 31 U/L (12-78); ALKALINE PHOSPHATASE 92 U/L (46-116); ASPARTATE AMINOTRANSFERASE 23 U/L (15-37); BILIRUBIN,DIRECT 0.1 mg/dL (0.0-0.2); BILIRUBIN,TOTAL 0.4 mg/dL (0.2-1.0); LIPASE 28 U/L (16-77); TOTAL PROTEIN, SERUM 8.2 g/dL (6.4-8.2)
[2023-06-20] MEDS ORDERED: MORPHINE SULFATE INJ 4 MG/ML DISP.SYRIN ONE (15:25)
[2023-06-20] MEDS ORDERED: ONDANSETRON HCL/PF 4 MG/2 ML VIAL ONE (15:25)
[2023-06-20] MEDS ORDERED: hydrALAZINE HCL IV 20 MG VIAL ONE (15:25)
[2023-06-20] MEDS ORDERED: POLY119P3 PO (17:10)
[2023-06-20] MEDS ORDERED: IBUP-1953 PO (17:11)
[2023-06-20 17:20] VITALS: BP 116/42; TEMP 98.5; O2SAT 99
== END 2023-06-20 17:20 | disposition home or self-care (01) ==
LOC: ER 11:50
DX: K59.00 Constipation, unspecified (principal); R10.84 Generalized abdominal pain; R51.9 Headache, unspecified; I10 Essential (primary) hypertension; E78.5 Hyperlipidemia, unspecified; K21.9 Gastro-esophageal reflux disease without esophagitis; E78.00 Pure hypercholesterolemia, unspecified; Z79.899 Other long term (current) drug therapy; Z98.890 Other specified postprocedural states
CPT/HCPCS: 99285; 70450; 96374; 71045; 96375; 96361; 93005; 87804 ×2; 74176; 85025; 80048; 83690; 80076; 36415; 84484; J0360; J2270; J2405; J7030

== ENCOUNTER 2023-07-25 13:40 | Emergency (ER) | payer OTHER ==
[~2023-07-25] VITALS: Ht 157.5 cm; Wt 70.8 kg
[~2023-07-25 13:40] MED LIST changes: +IBUP-1953 PO; +POLY119P3 PO
[2023-07-25] MEDS ORDERED: KETOROLAC TROMETHAMINE 15 MG/ML VIAL ONE (15:01)
[2023-07-25] MEDS: KETOROLAC TROMETHAMINE 15 MG/ML VIAL IM ONE (15:05)
[2023-07-25 16:46] VITALS: BP 155/67; TEMP 209.1; O2SAT 100
== END 2023-07-25 16:47 | disposition home or self-care (01) ==
LOC: ER 13:40
DX: M79.605 Pain in left leg (principal); M54.42 Lumbago with sciatica, left side; I10 Essential (primary) hypertension; E78.5 Hyperlipidemia, unspecified; K21.9 Gastro-esophageal reflux disease without esophagitis; E78.00 Pure hypercholesterolemia, unspecified; Z90.49 Acquired absence of other specified parts of digestive tract; Z79.899 Other long term (current) drug therapy
CPT/HCPCS: 99285; 93971; 96372; 73564; J1885

== ENCOUNTER 2025-04-29 17:50 | Emergency (ER) | payer OTHER ==
[~2025-04-29] VITALS: Ht 154.9 cm; Wt 71.7 kg
[2025-04-29 19:12] LABS: PLATELET COUNT (AUTO) 276 K/uL (150-450); RED BLOOD CELL COUNT(AUTO) 3.80 MIL/uL (4.0-5.2); RED CELL DISTRIBUTION WIDTH 14.1 % (11.5-15.0); WHITE BLOOD COUNT (AUTO) 9.6 K/uL (4.3-11.0)
[2025-04-29 19:14] LABS: CALCIUM, SERUM 9.1 mg/dL (8.5-10.1); CREATININE 1.7 mg/dL (0.6-1.3); SODIUM SERUM 140.0 mmol/L (136-145); UREA NITROGEN, BLOOD 32.0 mg/dL (7-18)
[2025-04-29 19:29] LABS: ASPARTATE AMINOTRANSFERASE 18.0 U/L (15-37); TOTAL PROTEIN, SERUM 7.1 g/dL (6.4-8.2)
[2025-04-29] MEDS: IV NS 0.9% 1,000 ML BAG IV ONE (19:50)
[2025-04-29 20:58] VITALS: BP 143/55; TEMP 98.1; O2SAT 98
== END 2025-04-29 20:58 | disposition home or self-care (01) ==
LOC: ER 17:51
DX: R42 Dizziness and giddiness (principal); K21.9 Gastro-esophageal reflux disease without esophagitis; E78.00 Pure hypercholesterolemia, unspecified; H93.12 Tinnitus, left ear; I10 Essential (primary) hypertension; Z79.899 Other long term (current) drug therapy; Z90.710 Acquired absence of both cervix and uterus
CPT/HCPCS: 99284; 96360; 70450; 93005; 85025; 80053; J7030; 36415